=== PATIENT | female | born 1995 | race Caucasian/White ===

== ENCOUNTER 2017-01-21 17:51 | Emergency (ER) | payer MEDICAID, OTHER ==
[~2017-01-21] VITALS: Ht 170.2 cm; Wt 62.0 kg
[~2017-01-21 17:51] MED LIST: HYDR50 PO; IBUP800T23 PO
[2017-01-21 17:52] VITALS: BP 140/92; PULSE 88; RESP 16; TEMP 98.7; O2SAT 100
[2017-01-21] MEDS ORDERED: IBUP800T23 PO (18:24)
[2017-01-21] MEDS ORDERED: BACT800T5 PO (18:24)
[2017-01-21] MEDS ORDERED: CEPH-460 PO (18:24)
--- NOTE | 2017-01-21 18:30 | PD ---
HPI Chief Complaint: Skin Problem Time Seen by Provider: 18:24 Travel History International Travel<30 days: No Contact w/Intl Traveler<30days: No Traveled to known affect area: No History of Present Illness HPI 21-year-old female presents to emergency Department with complaint of redness, warmth, swelling to her left forearm area 3 days. Reports IV drug use. Denies fever, vomiting. Denies paresthesias, loss of sensation, decreased range of motion, decreased strength to the affected extremity. Has tried cold compresses to the area. No known relieving factors. Allergies to the pertussis vaccine. Has no other medical complaints. No other modifying factors or associated signs and symptoms. PFSH Past Medical History Anxiety: Yes Immunizations Current: Yes ?: Unknown Social History Alcohol Use: No Tobacco Use: No Allergies-Medications (Allergen,Severity, Reaction): Coded Allergies: Pertussis Vaccine (Verified Allergy, Mild, 01/21/17) Reported Meds & Prescriptions Reported Meds & Active Scripts Active Ibuprofen 800 Mg Tab 800 Mg PO Q6HR PRN Bactrim DS (Sulfamethoxazole-Trimethoprim) 800-160 Mg Tab 1 Tab PO BID 10 Days Keflex (Cephalexin) 500 Mg Cap 500 Mg PO Q6H 10 Days Vistaril (Hydroxyzine Pamoate) 50 Mg Cap 50 Mg PO Q6H PRN 14 Days Ibuprofen 800 Mg Tab 800 Mg PO TID PRN Review of Systems Except as stated in HPI: all other systems reviewed are Neg Physical Exam Narrative GENERAL: Well-nourished, well-developed female patient, in no acute distress; afebrile, nontoxic-appearing SKIN: There is zone of inflammation with erythema, edema, and warmth to touch to the proximal left forearm which measures. It is nonfluctuant and there is no pointing or drainage. Left upper extremity supple and non-tense with 2+ radial pulse and sensory intact. No lymphangitis. HEAD: Atraumatic. Normocephalic. EYES: Pupils equal and round. No scleral icterus. No injection or drainage. ENT: Mucosa pink and moist. Airway patent. NECK: Trachea midline. CARDIOVASCULAR: Regular rate. RESPIRATORY: No accessory muscle use. GASTROINTESTINAL: Flat. MUSCULOSKELETAL: No obvious deformities. No clubbing. No cyanosis. No edema. NEUROLOGICAL: Awake and alert. Oriented 3. No obvious cranial nerve deficits. Motor grossly within normal limits. Normal speech. PSYCHIATRIC: Appropriate mood and affect; insight and judgment normal. Data Data Last Documented VS Vital Signs Date Time Temp Pulse Resp B/P Pulse Ox O2 Delivery O2 Flow Rate FiO2 01/21/17 17:52 98.7 88 16 140/92 100 Room Air MDM Medical Decision Making Medical Screen Exam Complete: Yes Emergency Medical Condition: Yes Medical Record Reviewed: Yes Differential Diagnosis Cellulitis, abscess, IV drug use Narrative Course 21-year-old female with area of cellulitis to the left forearm. Reports IV drug use. Patient is afebrile and nontoxic-appearing. No lymphangitis. Area of cellulitis marked with a surgical marker. Keflex, Bactrim, ibuprofen prescribed for home. Discussed reasons to return to the emergency department. Instructed patient to follow up with primary care provider. Patient verbalizes understanding and agreement with treatment plan. Patient is medically cleared and stable for discharge. Discussed reasons to return to the emergency department. Patient agrees with treatment plan. The patients vital signs are stable and the patient is stable for outpatient follow-up and treatment. Patient discharged home, stable and in no acute distress. Diagnosis Primary Impression: Cellulitis of forearm, left Referrals: [facility] Primary Care Physician Patient Instructions: Cellulitis (ED), General Instructions Departure Forms: Tests/Procedures, Work Release Enter return to work date: Jan 22, 2017 Additional Instructions: Complete full course of antibiotics Warm compresses to the affected area Keep area clean and dry Ibuprofen or Tylenol as directed and as needed for pain and inflammation Follow-up with primary care provider Return to emergency department immediately with worsening of symptoms Med/Other Pt SpecificInfo: Prescription(s) given Scripts Ibuprofen 800 Mg [id number] Mg PO Q6HR PRN (PAIN) #30 TAB Ref 0 Prov:Griselda Holt 01/21/17 Sulfamethoxazole-Trimethoprim (Bactrim DS)800-160 Mg Tab1 Tab PO BID 10 Days Ref 0 Prov:Griselda Holt 01/21/17 Cephalexin (Keflex)500 Mg [id number] Mg PO Q6H 10 Days Ref 0 Prov:Griselda Holt 01/21/17 Disposition: 01 DISCHARGE HOME Condition: Stable Griselda Holt Jan 21, 2017 18:30
== END 2017-01-21 18:44 | disposition home or self-care (01) ==
LOC: NEPK 17:51
DX: L03.114 Cellulitis of left upper limb (principal)
CPT/HCPCS: 99284

== ENCOUNTER 2017-04-02 17:46 | Emergency (ER) | payer SELFPAY ==
[~2017-04-02] VITALS: Ht 170.2 cm; Wt 70.0 kg
[~2017-04-02 17:46] MED LIST changes: +BACT800T5 PO; +CEPH-460 PO
[2017-04-02 17:49] VITALS: BP 125/86; PULSE 105; RESP 20; TEMP 97.7; O2SAT 98
[2017-04-02] MEDS ORDERED: METH40TA PO (17:55)
[2017-04-02] MEDS ORDERED: SODIUM CHLOR 0.9% 1000 ML INJ 1,000 ML IV ONE (18:04)
--- NOTE | 2017-04-02 18:09 | PD ---
HPI Chief Complaint: Syncope/Near-Syncope Time Seen by Provider: 17:59 Travel History International Travel<30 days: No Contact w/Intl Traveler<30days: No Traveled to known affect area: No History of Present Illness HPI 21-year-old female here for evaluation after having a witnessed seizure. Patient does not have history of seizures. She was released from long term today, and on her way out she had a witnessed seizure. During the seizure she fell to the ground, hitting her head on the ground. She also bit her tongue on the left side. No urinary incontinence. Patient was arrested for possession of heroin. She is on methadone. She also uses Xanax. She has not had any of these medications for the last 2 days because she was in detention. Patient now complains of right-sided head pain and right hand pain which is moderate, constant, worse with movement and palpation. No neck pain. Cervical collar placed in triage. She denies alcohol abuse. PFS Past Medical History Anxiety: Yes Immunizations Current: Yes ?: Not Social History Alcohol Use: No Tobacco Use: Yes [facility] Allergies-Medications (Allergen,Severity, Reaction): Coded Allergies: Pertussis Vaccines (Unverified Allergy, Mild, 03/03/17) Reported Meds & Prescriptions Reported Meds & Active Scripts Active Reported Methadone (Methadone HCl) 40 Mg Tab 60 Mg PO DAILY Review of Systems Except as stated in HPI: all other systems reviewed are Neg Physical Exam Narrative GENERAL: Well-developed, well-nourished, awake, alert, GCS 15, no apparent distress. SKIN: Focused skin assessment warm/dry. HEAD: Right parietal scalp hematoma with tenderness. No scalp lacerations. Normocephalic. EYES: Pupils equal and round. No scleral icterus. No injection or drainage. ENT: No nasal bleeding or discharge. Mucous membranes pink and moist. Laceration to left side of tongue where she bit herself without active bleeding. NECK: Trachea midline. No JVD. No midline cervical spine step-off or tenderness. CARDIOVASCULAR: Regular rate and rhythm. No murmur appreciated. RESPIRATORY: No accessory muscle use. Clear to auscultation. Breath sounds equal bilaterally. GASTROINTESTINAL: Abdomen soft, non-tender, nondistended. MUSCULOSKELETAL: Right hand third MCP joints there is moderate swelling dorsally with overlying ecchymosis and tenderness. The rest of her joints and extremities are without deformity, without tenderness, with normal range of motion. NEUROLOGICAL: Awake and alert. No obvious cranial nerve deficits. Motor grossly within normal limits. Normal speech. No focal deficits. PSYCHIATRIC: Appropriate mood and affect; insight and judgment normal. Data Data Last Documented VS Vital Signs Date Time Temp Pulse Resp B/P (MAP) Pulse Ox O2 Delivery O2 Flow Rate FiO2 04/02/17 18:49 89 16 126/77 (93) 98 Room Air 04/02/17 17:49 97.7 Orders Orders Complete Blood Count With Diff (04/02/17 18:04) Drug Screen, Random Urine (04/02/17 18:04) Electrocardiogram (04/02/17 ) Ct Brain W/O Iv Contrast(Rout) (04/02/17 ) Blood Glucose (04/02/17 18:04) Ecg Monitoring (04/02/17 18:04) Iv Access Insert/Monitor (04/02/17 18:04) Oximetry (04/02/17 18:04) Comprehensive Metabolic Panel (04/02/17 18:04) Sodium Chlor 0.9% 1000 Ml Inj (Ns 1000 M (04/02/17 18:04) Sodium Chloride 0.9% Flush (Ns Flush) (04/02/17 18:15) Ua Includes Microscopic (04/02/17 18:04) Ct Cerv Spine W/O Contrast (04/02/17 ) Morphine Inj (Morphine Inj) (04/02/17 18:15) Hand, Complete ([id number]) (04/02/17 ) Ed Urine Pregnancytest Poc (04/02/17 18:38) Labs Laboratory Tests Test 04/02/17 18:00 04/02/17 18:20 Urine Color LIGHT-YELLOW Urine Turbidity CLEAR Urine pH 6.5 Urine Specific [place] 1.003 Urine Protein TRACE mg/dL Urine Glucose (UA) NEG mg/dL Urine Ketones NEG mg/dL Urine Occult Blood NEG Urine Nitrite NEG Urine Bilirubin NEG Urine Urobilinogen LESS THAN 2.0 MG/DL Urine Leukocyte Esterase NEG Urine RBC LESS THAN 1 /hpf Urine WBC 1 /hpf Urine Squamous Epithelial Cells <1 /hpf Urine Opiates Screen NEG Urine Barbiturates Screen NEG Urine Amphetamines Screen NEG Urine Benzodiazepines Screen POS Urine Cocaine Screen NEG Urine Cannabinoids Screen POS White Blood Count 11.2 TH/MM3 Red Blood Count 5.71 MIL/MM3 Hemoglobin 16.1 GM/DL Hematocrit 47.9 % Mean Corpuscular Volume 83.9 FL Mean Corpuscular Hemoglobin 28.2 PG Mean Corpuscular Hemoglobin Concent 33.6 % Red Cell Distribution Width 14.6 % Platelet Count 257 TH/MM3 Mean Platelet Volume 8.0 FL Neutrophils (%) (Auto) 63.9 % Lymphocytes (%) (Auto) 28.0 % Monocytes (%) (Auto) 7.3 % Eosinophils (%) (Auto) 0.4 % Basophils (%) (Auto) 0.4 % Neutrophils # (Auto) 7.2 TH/MM3 Lymphocytes # (Auto) 3.1 TH/MM3 Monocytes # (Auto) 0.8 TH/MM3 Eosinophils # (Auto) 0.0 TH/MM3 Basophils # (Auto) 0.0 TH/MM3 CBC Comment DIFF FINAL Differential Comment Blood Urea Nitrogen 8 MG/DL Creatinine 0.80 MG/DL Random Glucose 94 MG/DL Total Protein 8.0 GM/DL Albumin 4.0 GM/DL Calcium Level 9.7 MG/DL Alkaline Phosphatase 103 U/L Aspartate Amino Transf (AST/SGOT) 47 U/L Alanine Aminotransferase (ALT/SGPT) 55 U/L Total Bilirubin 0.4 MG/DL Sodium Level 137 MEQ/L Potassium Level 4.6 MEQ/L Chloride Level 107 MEQ/L Carbon Dioxide Level 21.9 MEQ/L Anion Gap 8 MEQ/L Estimat Glomerular Filtration Rate 89 ML/MIN [facility] Medical Decision Making Medical Screen Exam Complete: Yes Emergency Medical Condition: Yes Differential Diagnosis Seizure, intracranial trauma, cervical spine injury, metabolic abnormality, benzodiazepine withdrawal seizure Narrative Course Vital signs reviewed. CBC shows WBC 11.2, hemoglobin 16.1, hematocrit 47.9, platelets 257. CMP is remarkable for AST 47, ALT 55, otherwise unremarkable. UA is not suggestive of UTI. Urine drug screen is positive for benzodiazepines and cannabinoids. Urine is negative. CT head: CONCLUSION: No bleed or other acute intracranial abnormality. CT cervical spine: CONCLUSION: Normal CT of the cervical spine. Right hand x-ray: CONCLUSION: Intact right hand. Patient and the patient's family were made aware of all findings. She is resting comfortably. She likely had a benzodiazepine withdrawal seizure. I told her I would like to admit her for further treatment and evaluation, however the patient reports that she would like to be discharged home. She was made aware of her elevated liver enzymes and tells me that she likely has hepatitis C as her boyfriend has hepatitis C. She does not have a primary care physician to follow up with, so I will give her the information to our [facility] and told her that she needs to follow-up in the next 3 days. She was informed on when to return to the emergency department. She verbalizes understanding and agreement with plan. Diagnosis Primary Impression: Seizure Additional Impressions: Closed head injury Qualified Codes: S09.90XA - Unspecified injury of head, initial encounter Contusion of right hand Qualified Codes: S60.221A - Contusion of right hand, initial encounter Transaminitis Referrals: Primary Care Physician 3 days Additional Instructions: Follow-up with a primary care physician this week. Return to the emergency department for worsening symptoms or any other concerns. Disposition: 01 DISCHARGE HOME Condition: Stable Thiago Burroughs MD Apr 02, 2017 18:09
[2017-04-02] MEDS ORDERED: MORPHINE SULFATE 4 MG/ML INJ IV PUSH ONE (18:15)
[2017-04-02] MEDS ORDERED: SODIUM CHLORIDE 0.9% FLUSH 10 ML FLUSH IVF PRN (18:15)
[2017-04-02 18:49] VITALS: BP 126/77; PULSE 89; RESP 16; O2SAT 98
[2017-04-02 18:52] LABS: AUTOMATED NEUTROPHIL # 7.2 TH/MM3 (1.8-7.7); BASOPHIL % 0.4 % (0.0-2.0); EOSINOPHIL % 0.4 % (0.0-4.0); HEMATOCRIT 47.9 % (35.0-46.0); HEMO FLAGS DIFF FINAL; LYMPHOCYTE # 3.1 TH/MM3 (1.0-4.8); MEAN CELL VOLUME 83.9 FL (80.0-100.0); MEAN CORPUSCULAR HEMOGLOBIN 28.2 PG (27.0-34.0); MEAN CORPUSCULAR HGB CONC 33.6 % (32.0-36.0); MONO % 7.3 % (0.0-8.0); NEUT % 63.9 % (16.0-70.0); PLATELET COUNT 257 TH/MM3 (150-450); RED BLOOD COUNT 5.71 MIL/MM3 (4.00-5.30); RED CELL DISTRIBUTION WIDTH 14.6 % (11.6-17.2); WHITE BLOOD COUNT 11.2 TH/MM3 (4.0-11.0)
--- NOTE | 2017-04-02 18:59 | RADRPT ---
EXAM DATE/TIME: 04/02/2017 18:38 [facility] COMPARISON: No previous studies available for comparison. INDICATIONS : Right hand pain; fall today. MEDICAL HISTORY : None. SURGICAL HISTORY : None. ENCOUNTER: Initial ACUITY: 1 day PAIN SCORE: 110 LOCATION: Right hand. FINDINGS: Three view examination of the right hand demonstrates no soft tissue swelling, dislocation, or fractu re. The carpal bones appear intact. The interphalangeal and metacarpophalangeal joints are intact. Bony mineralization is normal. CONCLUSION: Intact right hand. Sonido Matos MD on April 02, 2017 at 18:57 Board Certified Radiologist. This report was verified electronically.
[2017-04-02 19:09] LABS: BLOOD, URINE NEG (NEG); GLUCOSE,URINE NEG (NEG); KETONE, URINE NEG (NEG); NITRITE,URINE NEG (NEG); PH, URINE 6.5 (5.0-8.5); SQUAMOUS EPITHELIAL CELL URINE <1 /hpf (0-5); URINE COLOR LIGHT-YELLOW (YELLW/STRAW)
--- NOTE | 2017-04-02 19:12 | RADRPT ---
EXAM DATE/TIME: 04/02/2017 19:01 [facility] COMPARISON: No previous studies available for comparison. INDICATIONS : Trauma, fall. Possible seizure. Hit right side of head. RADIATION DOSE: 30.25 CTDIvol (mGy) MEDICAL HISTORY : None SURGICAL HISTORY : None. ENCOUNTER: Initial ACUITY: 1 day PAIN SCALE: 10/10 LOCATION: cranial TECHNIQUE: Multiple contiguous axial images were obtained of the head. Using automated exposure control and adj ustment of the mA and/or kV according to patient size, radiation dose was kept as low as reasonably a chievable to obtain optimal diagnostic quality images. DICOM format image data is available electro nically for review and comparison. FINDINGS: CEREBRUM: The ventricles are normal for age. No evidence of midline shift, mass lesion, hemorrhage or acute in farction. No extra-axial fluid collections are seen. POSTERIOR FOSSA: The cerebellum and brainstem are intact. The 4th ventricle is midline. The cerebellopontine angle i s unremarkable. EXTRACRANIAL: Very small right parietal scalp contusion. SKULL: The calvaria is intact. No evidence of skull fracture. CONCLUSION: No bleed or other acute intracranial abnormality. Sonido Matos MD on April 02, 2017 at 19:10 Board Certified Radiologist. This report was verified electronically.
[2017-04-02 19:20] LABS: ALT (GPT) 55 U/L (10-53)
--- NOTE | 2017-04-02 19:20 | RADRPT ---
EXAM DATE/TIME: 04/02/2017 19:01 [facility] COMPARISON: No previous studies available for comparison. INDICATIONS : Trauma, fall. RADIATION DOSE: 17.71 CTDIvol (mGy) MEDICAL HISTORY : None SURGICAL HISTORY : None. ENCOUNTER: Initial ACUITY: 1 day PAIN SCALE: 5/10 LOCATION: neck TECHNIQUE: Volumetric scanning of the cervical spine was performed. Multiplanar reconstructions in the sagittal, coronal and oblique axial planes were performed. Using automated exposure control and adjustment o f the mA and/or kV according to patient size, radiation dose was kept as low as reasonably achievable to obtain optimal diagnostic quality images. DICOM format image data is available electronically f or review and comparison. FINDINGS: VERTEBRAE: Normal vertebral body height. ALIGNMENT: No evidence of subluxation. C2-C3: The bony spinal canal is normal in size. No evidence of disc bulge or herniation. The neural forami na are bilaterally patent. C3-C4: The bony spinal canal is normal in size. No evidence of disc bulge or herniation. The neural forami na are bilaterally patent. C4-C5: The bony spinal canal is normal in size. No evidence of disc bulge or herniation. The neural forami na are bilaterally patent. C5-C6: The bony spinal canal is normal in size. No evidence of disc bulge or herniation. The neural forami na are bilaterally patent. C6-C7: The bony spinal canal is normal in size. No evidence of disc bulge or herniation. The neural forami na are bilaterally patent. C7-T1: The bony spinal canal is normal in size. No evidence of disc bulge or herniation. The neural forami na are bilaterally patent. CONCLUSION: Normal CT of the cervical spine. Sonido Matos MD on April 02, 2017 at 19:18 Board Certified Radiologist. This report was verified electronically.
[2017-04-02 19:23] LABS: ALKALINE PHOSPHATASE 103 U/L (45-117); TOTAL BILIRUBIN ADULT 0.4 MG/DL (0.2-1.0)
[2017-04-02 19:32] LABS: ANION GAP 8 MEQ/L (5-15); AST (GOT) 47 U/L (15-37); BICARBONATE 21.9 MEQ/L (21.0-32.0); BLOOD UREA NITROGEN 8 MG/DL (7-18); CHLORIDE 107 MEQ/L (98-107); GLOMERULAR FILTRATION RATE 89 ML/MIN (>89); POTASSIUM 4.6 MEQ/L (3.5-5.1); SODIUM (NA) 137 MEQ/L (136-145)
--- NOTE | 2017-04-03 11:31 | EKG ---
Date Performed: 04/02/2017 Time Performed: 18:17:59 PTAGE: 21 years EKG: Sinus rhythm NORMAL ECG NO PREVIOUS TRACING DOCTOR: Philip Melo Interpretating Date/Time 04/03/2017 11:29:31
== END 2017-04-02 20:03 | disposition home or self-care (01) ==
LOC: NEPD 17:46
DX: R56.9 Unspecified convulsions (principal); S09.90XA Unspecified injury of head, initial encounter; S60.221A Contusion of right hand, initial encounter; R74.0 Nonspecific elevation of levels of transaminase and lactic acid dehydrogenase [LDH]; Z72.0 Tobacco use; Z86.59 Personal history of other mental and behavioral disorders; Z79.899 Other long term (current) drug therapy; W18.39XA Other fall on same level, initial encounter
CPT/HCPCS: 70450; 72125; 73130; 80053; 80307; 81001; 84703; 85025; 93005; 96374; 99285; J2270; J7030

== ENCOUNTER 2017-05-11 20:01 | Emergency (ER) | payer SELFPAY ==
[~2017-05-11] VITALS: Ht 170.2 cm; Wt 68.0 kg
[~2017-05-11 20:01] MED LIST changes: -BACT800T5 PO; -CEPH-460 PO; -HYDR50 PO; -IBUP800T23 PO; +METH40TA PO
[2017-05-11 20:04] VITALS: BP 141/85; PULSE 69; RESP 15; TEMP 99.1; O2SAT 97
[2017-05-11] MEDS ORDERED: METH40TA PO (20:50)
--- NOTE | 2017-05-11 21:26 | PD ---
HPI Chief Complaint: Numbness/Tingling Time Seen by Provider: 20:54 Travel History International Travel<30 days: No Contact w/Intl Traveler<30days: No Traveled to known affect area: No History of Present Illness HPI 21yo F with no significant PMH presents to the ED with c/o pain in right hand for 2 weeks. States there is shooting pain and numbness in right 2nd, 3rd and half of 4th digit. Denies any trauma. Denies any fever, chest pain, sob, n/v, abdominal pain, focal weakness. PFSH Past Medical History Anxiety: Yes Diminished Hearing: No Immunizations Current: Yes Seizures: Yes (WITHDRAWL ) Tetanus Vaccination: < 5 Years Influenza Vaccination: No ?: Unknown LMP: 04/22/17 : 0 Past Surgical History Surgical History: No Previous Surgery Social History Alcohol Use: No Tobacco Use: Yes (1 PPD) Substance Use: Yes (HX HEROIN, COCAINE, CANNABIS) Allergies-Medications (Allergen,Severity, Reaction): Coded Allergies: Pertussis Vaccines (Unverified Allergy, Mild, 05/11/17) Reported Meds & Prescriptions Reported Meds & Active Scripts Active Tylenol (Acetaminophen) 325 Mg Tab 650 Mg PO Q6H PRN Reported Methadone (Methadone HCl) 40 Mg Tab 80 Mg PO DAILY Review of Systems Except as stated in HPI: all other systems reviewed are Neg Physical Exam Narrative GENERAL: 21yo F in mild distress. SKIN: Focused skin assessment warm/dry. HEAD: Atraumatic. Normocephalic. EYES: Pupils equal and round. No scleral icterus. No injection or drainage. CARDIOVASCULAR: Regular rate and rhythm. No murmur appreciated. RESPIRATORY: No accessory muscle use. Clear to auscultation. Breath sounds equal bilaterally. GASTROINTESTINAL: Abdomen soft, non-tender, nondistended. MUSCULOSKELETAL: Right hand: +Radial and ulnar pulse. Decreased sensation in medial aspect of 4th digit as well as 2nd and 3rd digit. +Tinel sign. NEUROLOGICAL: Awake and alert. No obvious cranial nerve deficits. Motor grossly within normal limits. Normal speech. PSYCHIATRIC: Appropriate mood and affect; insight and judgment normal. Data Data Last Documented VS Vital Signs Date Time Temp Pulse Resp B/P (MAP) Pulse Ox O2 Delivery O2 Flow Rate FiO2 05/11/17 23:59 05/11/17 20:04 99.1 69 15 97 Room Air Orders Orders Ed Urine Pregnancytest Poc (05/11/17 21:11) Acetamin-Hydrocod 325-5 Mg ([place] 5-325 (05/11/17 21:45) Splint Or Brace Apply/Monitor (05/11/17 23:33) Mandatory Outpatient Referral (05/11/17 23:41) Ed Discharge Order (05/11/17 23:59) Cockup Hand Splint (05/12/17 ) MDM Medical Decision Making Medical Screen Exam Complete: Yes Emergency Medical Condition: No Differential Diagnosis Carpal tunnel syndrome Narrative Course 21yo F with pain and numbness in right hand in the median nerve distribution. Sensation and muscle strength intact. Urine negative. Pt given 1 lortab which helped with pain. Pt's right wrist placed in splint. Did mandatory referral to hand. Return precautions given. Diagnosis Primary Impression: Carpal tunnel syndrome Qualified Codes: G56.01 - Carpal tunnel syndrome, right upper limb Patient Instructions: General Instructions Departure Forms: Tests/Procedures Additional Instructions: Please follow up with hand surgery if pain persists and not relieve with medication or wrist splint. I did a mandatory referral so onsite case manager will call you for appointment. Please wear wrist splint at night. Return to the ED if symptoms worsening. Med/Other Pt SpecificInfo: Prescription(s) given Scripts Acetaminophen (Tylenol) 325 Mg Tab 650 MG PO Q6H Y for PAIN SCALE 1 TO 4, #20 TAB 0 Refills Prov: Nevin Pardo DO 05/11/17 Disposition: 01 DISCHARGE HOME Condition: Stable Nevin Pardo DO May 11, 2017 21:26
[2017-05-11] MEDS ORDERED: ACETAMINOPHEN/HYDROcodone 325 MG/5 MG TAB PO ONE (21:45)
[2017-05-11] MEDS ORDERED: TYLE325T PO (23:38)
== END 2017-05-12 00:05 | disposition home or self-care (01) ==
LOC: NEPD 20:01
DX: G56.01 Carpal tunnel syndrome, right upper limb (principal)
CPT/HCPCS: 84703; 99283; L3908